=== PATIENT | male | born 1945 ===

== ENCOUNTER 2018-09-03 10:49 | Emergency (ER) | payer MEDICARE, BC ==
[2018-09-03 10:59] VITALS: BP 165/82; PULSE 74; RESP 18; TEMP 97.6; O2SAT 98
[2018-09-03] MEDS ORDERED: Tdap Vaccine 0.5 ml Vial (10-64 yrs) IM ONE ×2 (11:27→11:33)
[2018-09-03] MEDS ORDERED: Amoxicillin-Clav 875-125 mg Tab PO STA (11:41)
[2018-09-03] MEDS ORDERED: Amoxicillin-Clav 875-125 mg Tab PO ONE (11:46)
[2018-09-03] MEDS ORDERED: Bacitracin 500 Units/gm Oint Foilpak UD ONE (12:04)
--- NOTE | 2018-09-03 12:15 | C.PDOC ---
History Of Present Illness 73 y/o male presents to ed with dog bite to right fourth finger by friend's dog on Monday. Dog's vaccinations are utd. pt with no pain., sent toED from pmd Dr Hercules's office for further evaluation. no fever, no numbness or tingling to finger. no difficulty moving finger.. Time Seen by Provider: 09/03/18 11:08 Chief Complaint (Nursing): Bite History Per: Patient History/Exam Limitations: no limitations Onset/Duration Of Symptoms: Days (2) Current Symptoms Are (Timing): Still Present Location Of Injury: Right: Hand (4th finger) Quality Of Symptoms: denies: Painful, Itching Severity: Mild Past Medical History Reviewed: Historical Data, Nursing Documentation, Vital Signs Vital Signs: Last Vital Signs Temp 97.6 F 09/03/18 10:55 Pulse 74 09/03/18 10:55 Resp 18 09/03/18 10:55 BP 165/82 H 09/03/18 10:55 Pulse Ox 98 09/03/18 10:55 - Medical History PMH: HTN Family History: States: Unknown Family Hx - Social History Hx Alcohol Use: No Hx Substance Use: No - Immunization History Hx Tetanus Toxoid Vaccination: No Hx Influenza Vaccination: No Hx Pneumococcal Vaccination: No Review Of Systems Constitutional: Negative for: Fever, Chills Musculoskeletal: Positive for: Hand Pain Skin: Positive for: Other (laceration right fourth finger) Neurological: Negative for: Weakness, Numbness Physical Exam - Physical Exam Appears: Non-toxic, No Acute Distress Skin: Warm, Dry, Other (laceration (chunk of skin) missing from dorsal surface proximal phalanx right fourth finger with tendon exposed, no signs of injury to tendon. from to finger. normal cap refills. ) Extremity: Other (right fourth finger with from against resistance. ) Pulses: Right Radial: Normal Neurological/Psych: Oriented x3, Normal Speech, Normal Cognition, Normal Motor, Normal Sensation ED Course And Treatment O2 Sat by Pulse Oximetry: 98 Medical Decision Making Medical Decision Making: discussed with Dr Hercules ;discussed with Dr Tao, to whom she wanted to refer patient; he recommends hand/plastics;later adds he will see pt in office and wants wet to dry dressings daily. Will d/c with mark and Dr Mark or Dr Tao f/u, pt given info for both and importance of follow up due to risk of infectioin epmphasized to patient with patient expressing understanding. . Disposition Counseled Patient/Family Regarding: Diagnosis, Need For Followup, Rx Given - Disposition Referrals: Robbin Elizabeth MD [Medical Doctor] - Eber Mark MD [Staff Provider] - Disposition: HOME/ ROUTINE Disposition Time: 12:15 Condition: GOOD Additional Instructions: Keep finger covered and clean. Follow up with Dr Mark as soon as possible for further evaluation or with Dr Elizabeth next Monday.. DO wet to dry dressings to finger daily. Concern is that tendon is exposed and risk exists for infection that could easily spread to your hand and arm. Take antibiotics as prescribed. Tylenol for pain if needed. Return to ER for any sign of infection such as difficulty bending finger,fever, redness. swelling or other concerns. Prescriptions: Amoxicillin/Clavulanate [Augmentin 875 MG-125 MG] 1 tab PO BID #20 tab Instructions: Animal Bites (DC), How to Change a Wet to Dry Dressing Forms: [employer] (German), General Discharge Instructions - Clinical Impression Clinical Impression: Dog bite of finger
== END 2018-09-03 12:34 | disposition home or self-care (01) ==
LOC: C.ER 10:49
DX: S61.254A Open bite of right ring finger without damage to nail, initial encounter (principal); W54.0XXA Bitten by dog, initial encounter